=== PATIENT | female | born 1975 | race Caucasian/White ===

== ENCOUNTER 2020-04-04 07:45 | Outpatient (CLI) | payer OTHER | END 2020-04-04 23:59 | disposition home or self-care (01) | LOC: LAB.WCP 07:45 | PROVIDERS: ATTEND Family Medicine | DX: E03.9 Hypothyroidism, unspecified (principal) | CPT/HCPCS: 36415; 84443 ==

== ENCOUNTER 2020-06-02 08:00 | Outpatient (CLI) | payer OTHER | END 2020-06-02 23:59 | disposition home or self-care (01) | LOC: LAB.WCP 08:00 | PROVIDERS: ATTEND Family Medicine | DX: E03.9 Hypothyroidism, unspecified (principal) | CPT/HCPCS: 36415; 84443 ==

== ENCOUNTER 2021-04-08 08:00 | Outpatient (CLI) | payer OTHER ==
[2021-04-08 11:55] LABS: BASOPHILS % (AUTO) 0.4 %; EOSINOPHILS # (AUTO) 0.1 10^3/uL (0.0-0.7); EOSINOPHILS % (AUTO) 1.2 %; HCT - HEMATOCRIT 40.4 % (37.0-47.0); HGB - HEMOGLOBIN 13.2 g/dL (12.0-16.0); LYMPHOCYTES # (AUTO) 1.5 10^3/uL (1.5-3.5); LYMPHOCYTES % (AUTO) 29.7 %; MEAN CORPUSCULAR HEMOGLOBIN 29.7 pg (27.0-31.0); MEAN CORPUSCULAR HGB CONC 32.7 g/dL (32.0-36.0); MEAN PLATELET VOLUME 11.5 fL (7.9-10.8); MONOCYTES # (AUTO) 0.4 10^3/uL (0.0-1.0); MONOCYTES % (AUTO) 7.4 %; NEUTROPHILS # (AUTO) 3.2 10^3/uL (1.5-6.6); NEUTROPHILS % (AUTO) 61.1 %; PLT - PLATELET COUNT 252 10^3/uL (130-450); RED BLOOD COUNT 4.44 10^6/uL (4.20-5.40); RED CELL DISTRIBUTION WIDTH 13.2 % (12.0-15.0); WHITE BLOOD COUNT 5.2 x10^3/uL (4.8-10.8)
[2021-04-08 12:01] LABS: ALBUMIN 4.2 g/dL (3.2-5.5); ALBUMIN/GLOBULIN RATIO 1.5 (1.0-2.2); ALKALINE PHOSPHATASE 59 IU/L (42-121); ALT ALANINE AMINOTRANSFERASE 14 IU/L (10-60); AST ASPARTATE AMINOTRANSFERASE 15 IU/L (10-42); BILIRUBIN,TOTAL 0.6 mg/dL (0.2-1.0); BUN - BLOOD UREA NITROGEN 13 mg/dL (6-20); CALCIUM 9.1 mg/dL (8.5-10.3); CARBON DIOXIDE - CO2 24 mmol/L (21-32); CHLORIDE 104 mmol/L (101-111); CHOL/HDL RATIO 2.6 (<4.4); CHOLESTEROL 201 mg/dL; CREATININE 0.6 mg/dL (0.4-1.0); GFR - MDRD 109 (>89); GLUCOSE 94 mg/dL (70-100); HDL CHOLESTEROL 77 mg/dL; LDL CHOLESTEROL,CALCULATED 113 mg/dL; LDL/HDL RATIO 1.5 (<4.4); POTASSIUM 4.4 mmol/L (3.5-5.0); SODIUM 138 mmol/L (135-145); TRIGLYCERIDES 53 mg/dL; VLDL CHOLESTEROL 11 mg/dL
[2021-04-08 12:10] LABS: THYROID STIMULATING HORMONE 1.42 uIU/mL (0.34-5.60)
== END 2021-04-08 23:59 | disposition home or self-care (01) ==
LOC: LAB.WCP 08:00
PROVIDERS: ATTEND Nurse Practitioner Family
DX: E03.9 Hypothyroidism, unspecified (principal)
CPT/HCPCS: 36415; 80053; 80061; 83721; 84443; 85025

== ENCOUNTER 2021-05-07 10:04 | Outpatient (CLI) | payer OTHER ==
[2021-05-07 11:20] VITALS: BP 100/72
--- NOTE | 2021-05-07 11:20 | SLEEP CARE CONSULTATION ---
Information from patient questionnaire entered by Sissy Bhakta. I have reviewed and concur with the information entered by Sissy Bhakta. This document represents the service I personally performed and the decisions made by me, Alisa Lucas ARNP. History of Present Illness Service Date and Time: 05/07/2021 1004 Reason for Visit: New patient Chief Complaint: reports: Unrefreshed sleep, Snoring, Excessive daytime sleepiness, Observed pauses in breathing, Fatigue, Frequent awakenings at night Date of Onset: 4 years Usual bedtime: 10 pm Time it takes to fall asleep: less than 10 minutes Snores at night: Yes Observed to quit breathing while asleep: Yes Sleeps alone due to snoring: No Number of times waking at night: 2 Reasons for waking at night: reports: Snoring, Gasping for air Toss, Turn, or Twitch while sleeping: Yes Recalls having dreams: Yes Usually gets out of bed at: 5:30 am; weekends 7 AM Feels refreshed in the morning: No Morning headache: No Sleepy or fatigued during the day: Yes Ever fallen asleep while driving: No Takes day naps: Yes (10-20 minute naps every day) Dreams during day naps: No Prior sleep studies: No Additional HPI information: I had the pleasure of seeing NAN BAH today regarding the possibility of her having a sleep disorder. Her current complaints are fatigue, frequent night awakenings, observed pauses in breathing, snoring and unrefreshed sleep. She is waking up gasping for air, cannot breathe and her heart pounding. Last week she woke up and felt she could not breathe and thought she was going to . She feels tired when she wakes up and has no energy. She is usually a very active person. She states that she has been snoring loudly for long time but the gasping for air/not breathing well has been noted in the last 3-4 years. Her uses a PAP machine. - Parasomnia Symptoms Ever been unable to move upon waking from sleep: No Walks in sleep: No Talks in sleep: Yes Ever acted out dreams in sleep: No Ever felt weak in the knees when startled or emotional: No Bothered by creepy, crawly, restless sensations in legs: No Problems with memory or concentration: Yes (concentration mostly; short term memory is not very good) Subjective Initial [place] Sleepiness Scale score: 12 (in 2020) Past Medical History Past Medical History: reports: Hypothyroidism, Other (TMJ; adenoids and tonsils removed) Social History The patient's occupation is a TEACHER. Patient is and lives in [place]. Have you smoked in the past 12 months: No Alcohol use: No Caffeine use: Yes Caffeine amount and frequency: 1 cup daily Family History Family history of sleep disordered breathing: Yes Family Hx Sleep Apnea: Mother: Sleep apnea - Treated, Father: Snoring Allergies and Home Medications Drug allergies reviewed: Yes (ibuprofen) Home medication list reviewed: Yes Allergy and home medication list: Levothyroxine 88 mcg Azelastine HCl nasal spray Review of Systems Weight gain over past 5 years: 5-10 Cardiovascular: denies: high blood pressure Respiratory: reports: shortness of breath Gastrointestinal: reports: heartburn, difficulty swallowing Psychiatric: reports: claustrophobia. denies: anxiety, depression Ear/Nose/Throat: reports: tonsillectomy, wisdom teeth removed. denies: injury to nose Endocrine: reports: thyroid disease, sluggishness Immunologic: reports: sneezing, allergies to food or environment (seasonal) Physical Exam Blood Pressure: 100/72 Cuff size: wrist Heart Rate: 64 O2 Saturation: 98 Height: 5 ft 4 in Weight: 137 lb Body Mass Index: 23.5 BMI Classification: Healthy weight Neck circumference: 12.5 (inches) Mouth and throat: narrow oropharynx Soft palate: normal Hard palate: normal Uvula visualization: 25% Mallampati Class III Tongue: enlarged in size with teeth moore on lateral edges Tonsils: 1+ Chin and jaw: Micrognathia Neck: normal w/o lymphadenopathy or thyromegaly Heart: regular rate and rhythm Lungs: clear bilaterally Impression and Plan 1. Suspected Obstructive Sleep Apnea-Hypopnea Syndrome, as suggested by a history of loud and irregular snoring, observed cessation of breath while asleep, gasping or choking in sleep, frequent awakening during the night, unrefreshed sleep, cognitive impairment, and excessive daytime sleepiness. Narrow oropharynx and obesity are common predisposing factors for obstructive sleep apnea-hypopnea syndrome. I recommend proceeding to polysomnography to confirm the diagnosis and to assess severity. If the patient has significant sleep disordered breathing, a manual CPAP titration study will also be performed to find the optimal treatment pressure. I informed the patient of what the sleep studies involve and after some discussion, obtained agreement to proceed. The pathophysiology of obstructive sleep apnea-hypopnea syndrome was discussed with the patient and health risks of cardiovascular and cerebrovascular disease if not treated. AAS brochure for obstructive sleep apnea-hypopnea syndrome given and reviewed. Risks of drowsy driving discussed in detail and patient advised to avoid long distance driving and to lung puller at the first sign of drowsiness. Patient agreed to plan. * Schedule polysomnography +- manual CPAP titration study and return in 1-2 weeks after the study to discuss result and initiate therapy. * Avoid long distance driving or driving when feeling sleepy. * Avoid alcohol, sedative and muscle relaxant around bedtime. * Maintain a healthy weight. * Review instructions provided by trained office staff on how to prepare for the sleep study. * Return for follow-up after sleep study completed. Counseling Topics: Weight loss health impact Visit Type: In Office Time Spent with Patient (minutes): 32 Provider Statement: I spent 100% of the Face to Face Visit with the patient with greater than 50% spent counseling the patient and coordination of care.
== END 2021-05-07 10:05 | disposition home or self-care (01) ==
LOC: SC 10:04
PROVIDERS: ATTEND Nurse Practitioner Family
DX: R06.81 Apnea, not elsewhere classified (principal); G47.8 Other sleep disorders; G47.10 Hypersomnia, unspecified; R41.89 Other symptoms and signs involving cognitive functions and awareness; R06.83 Snoring
CPT/HCPCS: 99203; 99212

== ENCOUNTER 2021-06-10 09:01 | Outpatient (CLI) | payer OTHER | END 2021-06-10 09:02 | disposition home or self-care (01) | LOC: SC 09:01 | PROVIDERS: ATTEND Nurse Practitioner Family | DX: G47.33 Obstructive sleep apnea (adult) (pediatric) (principal) | CPT/HCPCS: 95806 ==

== ENCOUNTER 2021-06-25 09:10 | Outpatient (CLI) | payer OTHER ==
--- NOTE | 2021-06-25 09:35 | SLEEP CARE CONSULTATION ---
Information from patient questionnaire entered by Sissy Bhakta. I have reviewed and concur with the information entered by Sissy Bhakta. This document represents the service I personally performed and the decisions made by , Alisa Lucas ARNP. History of Present Illness Service Date and Time: 06/25/2021 0910 Initial [place] Sleepiness Scale score: 12 (in 2020) Current [place] Sleepiness Scale score: 16 Additional HPI information: NAN BAH returns for follow up and results of the recently performed home sleep study. I explained the pathophysiology behind obstructive sleep apnea. We then spent quite a bit of time discussing different treatment options. For mild obstructive sleep apnea, surgery and oral appliance are alternatives to nasal CPAP therapy but in moderate or severe cases, nasal CPAP is the most effective and reliable treatment. After some discussion, the patient opted to go with the nasal CPAP therapy. Nasal autoCPAP set at 4-15 cmH20 will be ordered with rationale explained. A manual titration study will be ordered if unable to find optimal pressure with office adjustments. I explained how CPAP machine works with sample devices Siklu Dreamstation and [employer] [id number] and what to expect when using the machine. Using CPAP every night in order to get used to it was emphasized. Patient advised to put CPAP mask on before getting into bed so as not to fall asleep without CPAP. To assist acclimation to CPAP use, it could also be used for a short time during day while reading or watching TV. The patient was instructed to call the CPAP supplier to discuss any mechanical problem that may occur. If the mask given is uncomfortable or is difficult to keep on through the night even with adjustment, contact the CPAP supplier as many will replace with another mask style if notified before 30 days. If snoring or perceives is not getting enough air or too much air from the machine, notify this office. AASM patient education PAP tips reviewed and given to patient. Patient does not drink alcohol. Patient was cautioned about risks of drowsy driving until sleepiness symptoms resolve. Sleep Study - Results Type of Sleep Study: Home sleep study Prior sleep studies: No Polysomnography/Home Sleep Study results: Physician Impression: The quality of the study is good. The length of the study is adequate (> 240 minutes). Please also see the tabulated and graphic data. 1. Obstructive Sleep Apnea-Hypopnea (ICD-10 G47.33), mild, with an AHI of 5.2/hr and maureen SaO2 of 90%. During the study, the patient had 17 apneas (17 obstructive, 0 central, 0 mixed) and 15 hypopneas. The longest episode lasted 105.5 seconds. The respiratory events occurred independently of sleep stage and body position (supine AHI was 5.1 and non-supine, 13.95). Allergies and Home Medications Home medication list reviewed: Yes (no changes) Review of Systems Review of systems same as previous: Yes (no changes) Physical Exam Heart Rate: 86 O2 Saturation: 97 Height: 5 ft 4 in Weight: 137 lb Body Mass Index: 23.5 BMI Classification: Healthy weight Impression and Plan 1. Obstructive Sleep Apnea-Hypopnea Syndrome, mild, with lowest oxygen saturation of 90%. Obviously this is the cause of the patients symptoms of unrefreshed sleep, and excessive daytime sleepiness. Positive pressure therapy could benefit her overall health and reduce risks of cardiovascular and cerebrovascular adverse events. As mentioned above, the patient will be started on nasal autoCPAP therapy with pressure set at 4-15 cmH2O. A manual titration study will be completed if unable to find optimal treatment pressure with office adjustments. Compliance guidelines also reviewed. A copy of compliance guidelines will be given for reference at check out. Patient is at a healthy weight and was advised to maintain her weight because weight gain can increase severity of sleep apnea. She voiced understanding. * Nasal auto CPAP therapy, pressure at 4-15 cm H2O. * Maintain a healthy weight. * The patient is again cautioned about driving until sleepiness completely resolves. * Return one month after CPAP obtained. I will assess response to therapy and compliance at that time. Counseling Topics: Weight control Visit Type: In Office Time Spent with Patient (minutes): 20 Provider Statement: I spent 100% of the Face to Face Visit with the patient with greater than 50% spent counseling the patient and coordination of care.
== END 2021-06-25 09:11 | disposition home or self-care (01) ==
LOC: SC 09:10
PROVIDERS: ATTEND Nurse Practitioner Family
DX: G47.33 Obstructive sleep apnea (adult) (pediatric) (principal)
CPT/HCPCS: 99212; 99213

== ENCOUNTER 2021-09-18 13:59 | Outpatient (CLI) | payer OTHER ==
[2021-09-18 18:05] LABS: BASOPHILS # (AUTO) 0.1 10^3/uL (0.0-0.1); BASOPHILS % (AUTO) 0.7 %; EOSINOPHILS # (AUTO) 0.1 10^3/uL (0.0-0.7); EOSINOPHILS % (AUTO) 1.5 %; HCT - HEMATOCRIT 40.3 % (37.0-47.0); HGB - HEMOGLOBIN 12.9 g/dL (12.0-16.0); LYMPHOCYTES # (AUTO) 1.9 10^3/uL (1.5-3.5); LYMPHOCYTES % (AUTO) 28.8 %; MEAN CORPUSCULAR HEMOGLOBIN 28.5 pg (27.0-31.0); MEAN CORPUSCULAR VOLUME 89.2 fL (81.0-99.0); MONOCYTES # (AUTO) 0.5 10^3/uL (0.0-1.0); MONOCYTES % (AUTO) 7.7 %; NEUTROPHILS # (AUTO) 4.1 10^3/uL (1.5-6.6); PLT - PLATELET COUNT 310 10^3/uL (130-450); RED BLOOD COUNT 4.52 10^6/uL (4.20-5.40); RED CELL DISTRIBUTION WIDTH 12.5 % (12.0-15.0); WHITE BLOOD COUNT 6.7 x10^3/uL (4.8-10.8)
[2021-09-18 18:29] LABS: ALBUMIN 4.3 g/dL (3.2-5.5); ALBUMIN/GLOBULIN RATIO 1.4 (1.0-2.2); BILIRUBIN,TOTAL 0.5 mg/dL (0.2-1.0); CALCIUM 9.1 mg/dL (8.5-10.3); CREATININE 0.6 mg/dL (0.4-1.0); POTASSIUM 3.7 mmol/L (3.5-5.0); TOTAL PROTEIN 7.3 g/dL (6.7-8.2)
[2021-09-18 18:41] LABS: THYROID STIMULATING HORMONE 0.68 uIU/mL (0.34-5.60)
[2021-09-18 18:42] LABS: FREE T4 (FREE THYROXINE) 1.13 ng/dL (0.58-1.64)
== END 2021-09-18 23:59 | disposition home or self-care (01) ==
LOC: LAB.WCP 13:59
PROVIDERS: ATTEND Nurse Practitioner
DX: E03.9 Hypothyroidism, unspecified (principal)
CPT/HCPCS: 36415; 80053; 84439; 84443; 85025

== ENCOUNTER 2021-10-20 10:53 | Outpatient (CLI) | payer OTHER ==
[2021-10-20 11:55] VITALS: BP 114/77
--- NOTE | 2021-10-20 11:55 | SLEEP CARE CONSULTATION ---
Information from patient questionnaire entered by Piotr Alejandre MA. I have reviewed and concur with the information entered by Piotr Alejandre MA. This document represents the service I personally performed and the decisions made by , Alisa Lucas ARNP. History of Present Illness Service Date and Time: 10/20/2021 1053 Previous diagnosis: Mild, Obstructive Sleep Apnea-Hypopnea Syndrome AHI: 5.2 Reason for follow up: first compliance (SET UP , ROSS ) Equipment type: CPAP Equipment obtained from: [employer] (getting supplies) Mask brand: Resmed (N30i) Backup mask available: No (when replaced will keep old mask ) Last cushion change: 1 month Prior sleep studies: No Type of Sleep Study: Home sleep study HPI additional information: NAN BAH was diagnosed to have mild, AHI 5.2, obstructive sleep apnea-hypopnea syndrome and returned today for CPAP therapy first compliance follow-up. Sleep Study - Results Type of Sleep Study: Home sleep study Prior sleep studies: No CPAP Compliance Data - Data Reviewed with Patient Average duration of nightly device use: 6 hours 29 minutes Compliance rate %: 100 Current pressure setting (cmH2O): 4-15 (median 5.7, avg 8.8, max 10.4) Average residual AHI: 1.1 Central apnea: 0.6 Obstructive apnea: 0.3 Average large leak: 9.5 L/min Subjective Patient concerns: reports: mask discomfort, other (air through mouth). denies: aerophagia, air blowing in eyes, mask leak noise, condensation in mask/hose, nasal congestion, dry mouth, nose, throat, epistaxis Observed to snore while using device: No Current pressure setting perceived as: comfortable On therapy, patient: reports: sleeping better, awakening more refreshed, being more awake and alert during the day, more rested overall. denies: drowsiness while driving Initial [place] Sleepiness Scale score: 12 (in 2020) Current [place] Sleepiness Scale score: 13 (2020) Allergies and Home Medications Home medication list reviewed: Yes (no changes) Review of Systems Review of systems same as previous: Yes (no changes) Physical Exam Vital signs obtained and entered by: NEVILLE NINO Blood Pressure: 114/77 (left) Cuff size: wrist Heart Rate: 62 O2 Saturation: 98 (with mask) Height: 5 ft 4 in Weight: 135 lb (with clothes) Body Mass Index: 23.1 BMI Classification: Healthy weight Impression and Plan 1. Obstructive Sleep Apnea-Hypopnea Syndrome, mild, with excellent treatment compliance and good apnea control. On CPAP therapy, the patient has better sleep quality and is more rested overall. Her hair has stopped falling out since starting the CPAP therapy. She has felt the nasal pillows mask is uncomfortable and she is breathing through her mouth at night. She would like to try a full face mask to see if this would be more comfortable. I will write for a mask refitting for a full face mask. The patients pressure will be changed to autoCPAP 6-10 cmH20 to reflect the pressures being used. Patient advised to contact me if pressure change is uncomfortable so that it can be adjusted. Goals for apnea control discussed. Patient's apnea severity and rationale for treatment to reduce apnea, improve sleep quality and reduce cardiovascular and cerebrovascular events was reviewed. Patient is at a healthy weight. * Change auto CPAP pressure to 6-10 cmH2O * mask refitting for a full face mask * Notify me if snoring with mask or feeling that the pressure is too much or too little * Maintain a healthy weight * Call this office if any problems using CPAP * Return for follow up in 1-2 months, or sooner if concerns arise Counseling Topics: Spare mask, Weight control Visit Type: In Office Time Spent with Patient (minutes): 20 Provider Statement: I spent 100% of the Face to Face Visit with the patient with greater than 50% spent counseling the patient and coordination of care.
== END 2021-10-20 10:54 | disposition home or self-care (01) ==
LOC: SC 10:53
PROVIDERS: ATTEND Nurse Practitioner Family
DX: G47.33 Obstructive sleep apnea (adult) (pediatric) (principal)
CPT/HCPCS: 99212; 99213

== ENCOUNTER 2021-12-23 15:43 | Outpatient (CLI) | payer OTHER ==
[2021-12-23 16:14] VITALS: BP 125/80
--- NOTE | 2021-12-23 16:14 | SLEEP CARE CONSULTATION ---
Information from patient questionnaire entered by Piotr Alejandre MA. I have reviewed and concur with the information entered by Piotr Alejandre MA. This document represents the service I personally performed and the decisions made by , Alisa Lucas ARNP. History of Present Illness Service Date and Time: 12/23/2021 1543 Previous diagnosis: Mild, Obstructive Sleep Apnea-Hypopnea Syndrome AHI: 5.2 Reason for follow up: other (2 month f/u) Equipment type: CPAP Equipment obtained from: [employer] (getting supplies) Mask style: Nasal (AIRFIT N30I) Backup mask available: No (will keep old mask when replaced) Last cushion change: haven't changed it yet Prior sleep studies: No Type of Sleep Study: Home sleep study HPI additional information: NAN BAH was diagnosed to have mild, AHI 5.2, obstructive sleep apnea-hypopnea syndrome and returned today for CPAP therapy two month follow-up. Sleep Study - Results Type of Sleep Study: Home sleep study Prior sleep studies: No CPAP Compliance Data - Data Reviewed with Patient Average duration of nightly device use: 4 HOURS 33 MINUTES Compliance rate %: 53 (60 days) Current pressure setting (cmH2O): 6-10 Average residual AHI: 0.6 Central apnea: .3 Obstructive apnea: .2 Average large leak: 15.2 Subjective Missed days of use due to: reports: mask issues (got a full face that was hurting face and couldn't wear), illness (mouth infection with surgery for bone graft) Patient concerns: reports: nasal congestion (Azelastine and saline nasal spray used before bed; wakes up sneezing), dry mouth, nose, throat (dry mouth). denies: aerophagia, mask discomfort, air blowing in eyes, mask leak noise, co ndensation in mask/hose, epistaxis, other Observed to snore while using device: No Current pressure setting perceived as: comfortable On therapy, patient: reports: sleeping better, awakening more refreshed, being more awake and alert during the day, more rested overall. denies: drowsiness while driving Initial [place] Sleepiness Scale score: 12 (in 2020) Current [place] Sleepiness Scale score: 15 (2021) Allergies and Home Medications Home medication list reviewed: Yes (no changes) Review of Systems Review of systems same as previous: No (cyst in mouth, had surgery with bone implants since October) Physical Exam Vital signs obtained and entered by: NEVILLE NINO Blood Pressure: 125/80 (RIGHT, PULSE 83, RESP 14,) Heart Rate: 85 O2 Saturation: 97 (N95) Height: 5 ft 4 in Weight: 135 lb (WITH CLOTHES) Body Mass Index: 23.1 BMI Classification: Healthy weight Impression and Plan 1. Obstructive Sleep Apnea-Hypopnea Syndrome, mild, with fair treatment compliance and excellent apnea control. On CPAP therapy, the patient has better sleep quality and is more rested overall. Patient's compliance has gone down (100% at last visit) mainly due to having an infection in her mouth for which she had to have surgery/a bone implant in October. Patient is trying to use the mask more now that she has been recovering. Patient states they sent her the wrong mask, it is a full face and it made her feel very claustrophobic. She has gone back to her nasal cushion mask that she likes a lot better. I encouraged her to order some more from her DME supplier and she voiced understanding. I do not feel we need any pressure changes today and that her compliance will come up as she continues to recover. She has had some nasal congestion and dry mouth. Oral dryness can be reduced by adjusting humidity setting higher or heated hose lower or by adjusting both settings. Verbal instructions given on how to change humidity and heated hose settings with rationale explaining why to change. Patient's apnea severity and rationale for treatment to reduce apnea, improve sleep quality and reduce cardiovascular and cerebrovascular events was reviewed. Patient is at a healthy weight for her height. * Continue auto CPAP pressure at 6-10 cmH2O * Notify me if snoring with mask or feeling that the pressure is too much or too little * Maintain a healthy weight * Call this office if any problems using CPAP * Return for follow up in 3 months, or sooner if concerns arise Counseling Topics: Spare mask, Weight control Visit Type: In Office Time Spent with Patient (minutes): 22 Provider Statement: I spent 100% of the Face to Face Visit with the patient with greater than 50% spent counseling the patient and coordination of care.
== END 2021-12-23 15:44 | disposition home or self-care (01) ==
LOC: SC 15:43
PROVIDERS: ATTEND Nurse Practitioner Family
DX: G47.33 Obstructive sleep apnea (adult) (pediatric) (principal)
CPT/HCPCS: 99212; 99213

== ENCOUNTER 2022-03-25 14:28 | Outpatient (CLI) | payer OTHER ==
[2022-03-25 15:07] VITALS: BP 125/82
--- NOTE | 2022-03-25 15:07 | SLEEP CARE CONSULTATION ---
Information from patient questionnaire entered by Piotr Alejandre MA. I have reviewed and concur with the information entered by Piotr Alejandre MA. This document represents the service I personally performed and the decisions made by , Alisa Lucas ARNP. History of Present Illness Service Date and Time: 03/25/2022 1428 Previous diagnosis: Mild, Obstructive Sleep Apnea-Hypopnea Syndrome AHI: 5.2 Reason for follow up: three month (3 MONTH F/U, RESMED, ) Equipment type: CPAP Equipment obtained from: [employer] (getting supplies) Mask style: Nasal Mask brand: Resmed (Airfit N30i) Backup mask available: Yes (other mask) Prior sleep studies: No Type of Sleep Study: Home sleep study HPI additional information: NAN BAH was diagnosed to have mild, AHI 5.2, obstructive sleep apnea-hypopnea syndrome and returned today for CPAP therapy 3 months follow-up. Sleep Study - Results Type of Sleep Study: Home sleep study Prior sleep studies: No CPAP Compliance Data - Data Reviewed with Patient Average duration of nightly device use: 5 HOURS 11 MINUTES Compliance rate %: 63 (12/24/21-03/23/22; 76/90 day usage) Current pressure setting (cmH2O): 6-10 Average residual AHI: 0.8 Central apnea: .3 Obstructive apnea: .3 Average large leak: 17.0 Subjective Missed days of use due to: reports: mask issues, illness (has had dental surgeries x 2), other (work stress issues) Patient concerns: reports: mask discomfort (has not been able get more mask cushions yet, not changing out). denies: aerophagia, air blowing in eyes, mask leak noise, condensation in mask/hose, nasal congestion, dry mouth, nose, throat, epistaxis, other Observed to snore while using device: No Current pressure setting perceived as: comfortable On therapy, patient: reports: sleeping better, awakening more refreshed, being more awake and alert during the day, more rested overall. denies: drowsiness while driving Initial [place] Sleepiness Scale score: 12 (in 2020) Current [place] Sleepiness Scale score: 9 (02/2022) Allergies and Home Medications Known drug allergies: No Drug allergies reviewed: Yes (MOTRIN) Home medication list reviewed: Yes (no changes) Review of Systems Review of systems same as previous: No (2nd dental surgery) Physical Exam Vital signs obtained and entered by: NEVILLE NINO Blood Pressure: 125/82 (RESP 16, PULSE 76, RIGHT) Cuff size: wrist Heart Rate: 76 O2 Saturation: 98 (N95) Height: 5 ft 4 in Weight: 136 lb 8 oz Body Mass Index: 23.4 BMI Classification: Healthy weight Impression and Plan 1. Obstructive Sleep Apnea-Hypopnea Syndrome, mild, with good treatment compliance and good apnea control. On CPAP therapy, the patient has better sleep quality and is more rested overall. Patient has been having mask comfort issues. Her DME gave her a full face mask but she cannot use this as it feels too "heavy" on her face. She has been using a ResMed N30i that is more comfortable but she will get some soreness under the nasal septum. She asks for advise. I recommended that she try a Alejandra Dreamwear nasal cushion to see if this is more comfortable. A sample of this mask was given to patient. She has had some lower compliance also due to not being able to wear her mask because of facial soreness after dental procedures/surgery. She is trying to use it as much as she is able. She has also had a lot of stress from work and family that has limited the time she is able to sleep. She does state that she sleeps better when able to tolerate wearing the mask and getting solid sleep. Patient's apnea severity and rationale for treatment to reduce apnea, improve sleep quality and reduce cardiovascular and cerebrovascular events was reviewed. * Continue auto CPAP pressure at 6-10 cmH2O * Gave Dreamwear nasal cushion mask set to try * Notify me if snoring with mask or feeling that the pressure is too much or too little * Call this office if any problems using CPAP * Return for follow up in 6 months, or sooner if concerns arise Mask provided: Yes Counseling Topics: Spare mask Visit Type: In Office Time Spent with Patient (minutes): 21 Provider Statement: I spent 100% of the Face to Face Visit with the patient with greater than 50% spent counseling the patient and coordination of care.
== END 2022-03-25 14:29 | disposition home or self-care (01) ==
LOC: SC 14:28
PROVIDERS: ATTEND Nurse Practitioner Family
DX: G47.33 Obstructive sleep apnea (adult) (pediatric) (principal)
CPT/HCPCS: 99212; 99213

== ENCOUNTER 2022-09-02 13:26 | Outpatient (CLI) | payer OTHER ==
[2022-09-02 18:32] LABS: THYROID STIMULATING HORMONE 0.23 uIU/mL (0.34-5.60)
[2022-09-02 18:33] LABS: FREE T4 (FREE THYROXINE) 1.09 ng/dL (0.58-1.64)
== END 2022-09-02 13:27 | disposition home or self-care (01) ==
LOC: LAB.N 13:26
PROVIDERS: ATTEND Nurse Practitioner
DX: R53.83 Other fatigue (principal); E55.9 Vitamin D deficiency, unspecified; E03.9 Hypothyroidism, unspecified
CPT/HCPCS: 36415; 82306; 82607; 82652; 83540; 84439; 84443

== ENCOUNTER 2022-09-11 09:44 | Outpatient (CLI) | payer OTHER ==
[2022-09-11 18:42] LABS: BASOPHILS % (AUTO) 0.7 %; EOSINOPHILS # (AUTO) 0.1 10^3/uL (0.0-0.7); EOSINOPHILS % (AUTO) 2.4 %; HCT - HEMATOCRIT 42.9 % (37.0-47.0); HGB - HEMOGLOBIN 13.7 g/dL (12.0-16.0); LYMPHOCYTES # (AUTO) 1.7 10^3/uL (1.5-3.5); LYMPHOCYTES % (AUTO) 32.1 %; MEAN CORPUSCULAR HEMOGLOBIN 28.1 pg (27.0-31.0); MEAN CORPUSCULAR HGB CONC 31.9 g/dL (32.0-36.0); MEAN CORPUSCULAR VOLUME 88.1 fL (81.0-99.0); MEAN PLATELET VOLUME 11.2 fL (7.9-10.8); MONOCYTES # (AUTO) 0.3 10^3/uL (0.0-1.0); MONOCYTES % (AUTO) 5.8 %; NEUTROPHILS # (AUTO) 3.2 10^3/uL (1.5-6.6); NEUTROPHILS % (AUTO) 58.8 %; PLT - PLATELET COUNT 282 10^3/uL (130-450); RED BLOOD COUNT 4.87 10^6/uL (4.20-5.40); WHITE BLOOD COUNT 5.4 x10^3/uL (4.8-10.8)
[2022-09-11 18:56] LABS: ALBUMIN 3.9 g/dL (3.2-5.5); ALBUMIN/GLOBULIN RATIO 1.1 (1.0-2.2); BILIRUBIN,TOTAL 0.5 mg/dL (0.2-1.0); CALCIUM 8.8 mg/dL (8.5-10.3); CREATININE 0.6 mg/dL (0.4-1.0); POTASSIUM 4.4 mmol/L (3.5-5.0); TOTAL PROTEIN 7.3 g/dL (6.7-8.2)
[2022-09-11 19:10] LABS: THYROID STIMULATING HORMONE 0.73 uIU/mL (0.34-5.60)
[2022-09-11 19:13] LABS: FREE T4 (FREE THYROXINE) 0.84 ng/dL (0.58-1.64)
== END 2022-09-11 09:45 | disposition home or self-care (01) ==
LOC: LAB.N 09:44
PROVIDERS: ATTEND Nurse Practitioner
DX: E03.9 Hypothyroidism, unspecified (principal); R53.83 Other fatigue
CPT/HCPCS: 36415; 80053; 84439; 84443; 85025

== ENCOUNTER 2022-09-28 16:05 | Outpatient (CLI) | payer OTHER ==
[2022-09-28 16:41] VITALS: BP 142/80
--- NOTE | 2022-09-28 16:41 | SLEEP CARE CONSULTATION ---
Information from patient questionnaire entered by Doris Acuna. I have reviewed and concur with the information entered by Doris Acuna. This document represents the service I personally performed and the decisions made by me, Alisa Lucas ARNP. History of Present Illness Service Date and Time: 09/28/2022 1605 Previous diagnosis: Mild, Obstructive Sleep Apnea-Hypopnea Syndrome AHI: 5.2 Reason for follow up: six month (F/U) Equipment type: CPAP Equipment obtained from: [employer] (getting supplies but does not like dealing with them) Mask style: Nasal Backup mask available: Yes (other mask) Prior sleep studies: No Type of Sleep Study: Home sleep study HPI additional information: NAN BAH was diagnosed to have mild, AHI 5.2, obstructive sleep apnea-hypopnea syndrome and returned today for CPAP therapy six month follow-up. Sleep Study - Results Type of Sleep Study: Home sleep study Prior sleep studies: No CPAP Compliance Data - Data Reviewed with Patient Average duration of nightly device use: 6 hours 5 mins Compliance rate %: 53 (106/180 days used) Current pressure setting (cmH2O): 6-10 Average residual AHI: 1.1 Central apnea: 0.6 Obstructive apnea: 0.3 Subjective Missed days of use due to: reports: family emergency (father ill in hospital/) Patient concerns: reports: nasal congestion (using saline nasals spray and astelin; prob before machine), dry mouth, nose, throat. denies: aerophagia, mask discomfort, air blowing in eyes, mask leak noise, condensation in mask/ hose, epistaxis Observed to snore while using device: No Current pressure setting perceived as: comfortable On therapy, patient: reports: sleeping better, awakening more refreshed, being more awake and alert during the day, more rested overall. denies: drowsiness while driving Initial [place] Sleepiness Scale score: 12 (in 2020) Current [place] Sleepiness Scale score: 6 (09/28/22) Allergies and Home Medications Drug allergies reviewed: Yes (ibuprofen) Home medication list reviewed: Yes (reduced levothyroxine to 88 mcg every other day) Review of Systems Review of systems same as previous: Yes (no changes) Physical Exam Vital signs obtained and entered by: DORIS Farrell MA Blood Pressure: 142/80 (LEFT ARM) Cuff size: regular Heart Rate: 93 O2 Saturation: 98 Height: 5 ft 4 in Weight: 139 lb 12.8 oz Body Mass Index: 24.0 BMI Classification: Normal Impression and Plan 1. Obstructive Sleep Apnea-Hypopnea Syndrome, mild, with fair treatment compliance and good apnea control. On CPAP therapy, the patient has better sleep quality and is more rested overall. Patient has been having some insomnia and other issues that she states is due to other issues like her hypothyroid. Her compliance is lower because he father got sick and she was in the hospital with him for a month. She did not use the machine at this time. She is frustrated because her current DME ([employer]) made her pay for her machine. She would like to change to a different DME. She has two different insurances and her can get his supplies from [facility]. She would like to switch to them. I will write to transfer DME. Patient's apnea severity and rationale for treatment to reduce apnea, improve sleep quality and reduce cardiovascular and cerebrovascular events was reviewed. * Continue auto CPAP pressure at 6-10 cmH2O * Transfer DME * Notify me if snoring with mask or feeling that the pressure is too much or too little * Call this office if any problems using CPAP * Return for follow up in 1 year, or sooner if concerns arise Counseling Topics: Spare mask Visit Type: In Office Time Spent with Patient (minutes): 23 Provider Statement: I spent 100% of the Face to Face Visit with the patient with greater than 50% spent counseling the patient and coordination of care.
== END 2022-09-28 16:06 | disposition home or self-care (01) ==
LOC: SC 16:05
PROVIDERS: ATTEND Nurse Practitioner Family
DX: G47.33 Obstructive sleep apnea (adult) (pediatric) (principal)
CPT/HCPCS: 99212; 99213

== ENCOUNTER 2023-01-17 07:05 | Outpatient (CLI) | payer OTHER ==
[2023-01-17 12:43] LABS: CHOL/HDL RATIO 2.4 (<4.4); CHOLESTEROL 185 mg/dL; HDL CHOLESTEROL 77 mg/dL; LDL CHOLESTEROL,CALCULATED 97 mg/dL; LDL/HDL RATIO 1.3 (<4.4); TRIGLYCERIDES 53 mg/dL; VLDL CHOLESTEROL 11 mg/dL
[2023-01-17 13:03] LABS: THYROID STIMULATING HORMONE 24.04 uIU/mL (0.34-5.60)
[2023-01-17 13:05] LABS: FREE T4 (FREE THYROXINE) 0.82 ng/dL (0.58-1.64)
== END 2023-01-17 07:06 | disposition home or self-care (01) ==
LOC: LAB.N 07:05
PROVIDERS: ATTEND Physician Assistant
DX: E03.9 Hypothyroidism, unspecified (principal); Z13.220 Encounter for screening for lipoid disorders
CPT/HCPCS: 36415; 80061; 83721; 84439; 84443

== ENCOUNTER 2023-03-19 16:16 | Outpatient (CLI) | payer OTHER ==
[2023-03-19 21:00] LABS: THYROID STIMULATING HORMONE 2.05 uIU/mL (0.34-5.60)
[2023-03-19 21:02] LABS: FREE T3 2.86 pg/mL (2.5-3.9); FREE T4 (FREE THYROXINE) 1.05 ng/dL (0.58-1.64)
== END 2023-03-19 16:17 | disposition home or self-care (01) ==
LOC: LAB.N 16:16
PROVIDERS: ATTEND Physician Assistant
DX: E03.9 Hypothyroidism, unspecified (principal)
CPT/HCPCS: 36415; 84439; 84443; 84481

== ENCOUNTER 2023-09-21 11:27 | Outpatient (CLI) | payer OTHER ==
[2023-09-21 18:24] LABS: THYROID STIMULATING HORMONE 2.14 uIU/mL (0.34-5.60)
== END 2023-09-21 11:28 | disposition home or self-care (01) ==
LOC: LAB.N 11:27
PROVIDERS: ATTEND Physician Assistant
DX: E55.9 Vitamin D deficiency, unspecified (principal); E03.9 Hypothyroidism, unspecified
CPT/HCPCS: 36415; 82306; 84439; 84443

== ENCOUNTER 2023-10-11 14:24 | Outpatient (CLI) | payer OTHER ==
--- NOTE | 2023-10-11 14:50 | Sleep Patient Instructions ---
Sleep Center Visit Summary - Patient Visit Information Reason for Visit: Annual Visit - Patient Instructions Additional Instructions: You will continue with CPAP therapy with pressure set at 6-10 cmH2O. A supply prescription will be updated with your DME. Please follow up with the sleep care office in 1 year. - Clinic Information Contact: [facility] [address] [place] [address] [email or web address] T: [phone]
--- NOTE | 2023-10-11 14:55 | SLEEP CARE CONSULTATION ---
Information from patient questionnaire entered by Robinson Acuna. I have reviewed and concur with the information entered by Robinson Acuna. This document represents the service I personally performed and the decisions made by , Alisa Lucas ARNP. History of Present Illness Service Date and Time: 10/11/2023 1424 Previous diagnosis: Mild, Obstructive Sleep Apnea-Hypopnea Syndrome AHI: 5.2 Reason for follow up: annual (LAST SEEN 08/2022) Equipment type: CPAP (RESMED Airsense 11, mcgowan 08/2021) Equipment obtained from: Other ([facility]; getting supplies) Mask style: Nasal Mask brand: Resmed (Airfit [id number]) Backup mask available: Yes Last cushion change: end of Jul Prior sleep studies: No Type of Sleep Study: Home sleep study HPI additional information: NAN BAH was diagnosed to have mild, AHI 5.2, obstructive sleep apnea-hypopnea syndrome and returned today for CPAP therapy annual follow- up. Sleep Study - Results Type of Sleep Study: Home sleep study Prior sleep studies: No CPAP Compliance Data - Data Reviewed with Patient Average duration of nightly device use: 5 HRS 24 MINS Compliance rate %: 47 (10/07/2022-10/06/2023; 209/365 days used) Current pressure setting (cmH2O): 6-10 Average residual AHI: 0.9 Central apnea: 0.5 Obstructive apnea: 0.3 Average large leak: 1.6 L/min Subjective Missed days of use due to: reports: illness (has lots of nasal congestion with sneezing; can't always use device), other (had to take care of mother at night, unable to use CPAP) Patient concerns: reports: nasal congestion (has sinus issues). denies: aerophagia, mask discomfort, air blowing in eyes, mask leak noise, condensation in mask/hose, dry mouth, nose, throat, epistaxis Observed to snore while using device: No Current pressure setting perceived as: comfortable On therapy, patient: reports: sleeping better, awakening more refreshed, being more awake and alert during the day, more rested overall. denies: drowsiness while driving Initial [place] Sleepiness Scale score: 12 (in 2020) Current [place] Sleepiness Scale score: 7 (10/11/23) Allergies and Home Medications Known drug allergies: Yes (as listed) Drug allergies reviewed: Yes Home medication list reviewed: Yes (no changes) Allergy and home medication list: Allergies ibuprofen Allergy (Verified 10/10/23 09:39) Review of Systems Review of systems same as previous: Yes (NO CHANGE) Physical Exam Vital signs obtained and entered by: ROBINSON Farrell MA Blood Pressure: 122/70 (LEFT ARM) Cuff size: regular Heart Rate: 76 O2 Saturation: 96 Height: 5 ft 4 in Weight: 143 lb Body Mass Index: 24.5 BMI Classification: Normal Impression and Plan 1. Obstructive Sleep Apnea-Hypopnea Syndrome, mild, with fair treatment compliance and good apnea control. On CPAP therapy, the patient has better sleep quality and is more rested overall. She has trouble with her sinuses with nasal congestion and sneezing that affects her use of her CPAP. She tries to use it as much as she can because she feels the improvement of her sleep. Patient has significant improvement of their sleep apnea and is satisfied with current CPAP therapy. Patient denies problems with oral dryness, nasal congestion, epistaxis, skin irritation or aerophagia. Patient's apnea severity and rationale for treatment to reduce apnea, improve sleep quality and reduce cardiovascular and cerebrovascular events was reviewed. * Continue auto CPAP pressure at 6-10 cmH2O * Update supply prescription * Notify me if snoring with mask or feeling that the pressure is too much or too little * Call this office if any problems using CPAP * Return for follow up in 1 year, or sooner if concerns arise Counseling Topics: Spare mask Prescriptions: Device supplies Follow up with Sleep Care in: 1 year Visit Type: In Office Time Spent with Patient (minutes): 20 Provider Statement: I spent 100% of the Face to Face Visit with the patient with greater than 50% spent counseling the patient and coordination of care.
[2023-10-11 15:17] VITALS: BP 122/70; O2SAT 96
== END 2023-10-11 14:25 | disposition home or self-care (01) ==
LOC: SC 14:24
PROVIDERS: ATTEND Nurse Practitioner Family
DX: G47.33 Obstructive sleep apnea (adult) (pediatric) (principal); E55.9 Vitamin D deficiency, unspecified
CPT/HCPCS: 36415; 80053; 83970; 84100; 86364; 99212

== ENCOUNTER 2023-10-11 14:55 | Outpatient (CLI) | payer OTHER ==
[2023-10-11 18:27] LABS: ALBUMIN 4.3 g/dL (3.2-5.5); ALBUMIN/GLOBULIN RATIO 1.7 (1.0-2.2); BILIRUBIN,TOTAL 0.5 mg/dL (0.2-1.0); CALCIUM 9.3 mg/dL (8.5-10.3); CREATININE 0.7 mg/dL (0.6-1.3); POTASSIUM 3.8 mmol/L (3.5-4.5); TOTAL PROTEIN 6.9 g/dL (6.4-8.9)
== END 2023-10-11 14:56 | disposition home or self-care (01) ==
LOC: LAB.N 14:55
PROVIDERS: ATTEND Physician Assistant
DX: E55.9 Vitamin D deficiency, unspecified (principal)
CPT/HCPCS: 36415; 80053; 83970; 84100; 86364

== ENCOUNTER 2023-10-28 11:02 | Outpatient (CLI) | payer OTHER | END 2023-10-28 11:03 | disposition home or self-care (01) | LOC: LAB.N 11:02 | PROVIDERS: ATTEND Physician Assistant | DX: E55.9 Vitamin D deficiency, unspecified (principal); R79.89 Other specified abnormal findings of blood chemistry | CPT/HCPCS: 82330 ==

== ENCOUNTER 2023-11-01 08:00 | Outpatient (CLI) | payer OTHER | END 2023-11-01 23:59 | disposition home or self-care (01) | LOC: LAB.N 08:00 | PROVIDERS: ATTEND Physician Assistant | DX: E55.9 Vitamin D deficiency, unspecified (principal); R79.89 Other specified abnormal findings of blood chemistry | CPT/HCPCS: 81599; 82340 ==

== ENCOUNTER 2023-12-24 11:04 | Outpatient (CLI) | payer OTHER | END 2023-12-24 11:05 | disposition home or self-care (01) | LOC: LAB 11:04 | PROVIDERS: ATTEND Physician Assistant | DX: E55.9 Vitamin D deficiency, unspecified (principal); R79.89 Other specified abnormal findings of blood chemistry ==

== ENCOUNTER 2024-01-02 08:00 | Outpatient (CLI) | payer OTHER ==
[2024-01-04 07:11] LABS: CALCIUM URINE 10.8 mg/dL (Not Estab.)
== END 2024-01-02 23:59 | disposition home or self-care (01) ==
LOC: LAB.N 08:00
PROVIDERS: ATTEND Physician Assistant
DX: E55.9 Vitamin D deficiency, unspecified (principal); R79.89 Other specified abnormal findings of blood chemistry
CPT/HCPCS: 82340

== ENCOUNTER 2024-01-05 13:50 | Outpatient (CLI) | payer OTHER ==
--- NOTE | 2024-01-05 15:49 | DEXA Report ---
PROCEDURE: Dexa Spine and/or Hip INDICATIONS: ELEVATED PARATHYROID TECHNIQUE: Dual energy x-ray absorptiometry (DXA) was performed on a [employer] System. Regions measur ed are the AP Spine, femoral neck, and if needed forearm. COMPARISON: None FINDINGS: Lumbar Spine: Bone Mineral Density: 1.28 g/cm/cm,T score: 0.9. Left Femoral Neck: Bone Mineral Density: 0.95 g/cm/cm, T score: -0.6. Left Hip: Bone Mineral Density: 0.94 g/cm/cm,T score: -0.5. (T score greater or equal to -1.0: NORMAL) (T score from -1.1 to -2.4: OSTEOPENIA) (T score less than or equal to -2.5 to: OSTEOPOROSIS) Impression: By WHO criteria, this patient has normal bone density. Patients with diagnosis of osteoporosis or osteopenia should have regular bone mineral density assess ment. For those eligible for Medicare, routine testing is allowed once every 2 years. Testing frequ ency can be increased for patients who have rapidly progressing disease or for those who are receivin g medical therapy to restore bone mass. Reviewed by: Pan Puri MD on 01/05/2024 3:47 PM PST Approved by: Pan Puri MD on 01/05/2024 3:47 PM PST Station ID: [id number]
== END 2024-01-05 13:51 | disposition home or self-care (01) ==
LOC: DI 13:50
PROVIDERS: ATTEND Physician Assistant
DX: R79.89 Other specified abnormal findings of blood chemistry (principal); E55.9 Vitamin D deficiency, unspecified

== ENCOUNTER 2024-01-12 16:05 | Outpatient (CLI) | payer OTHER ==
[2024-01-12 21:48] LABS: ALBUMIN 4.2 g/dL (3.2-5.5); ALBUMIN/GLOBULIN RATIO 1.8 (1.0-2.2); BILIRUBIN,TOTAL 0.5 mg/dL (0.2-1.0); CALCIUM 9.3 mg/dL (8.5-10.3); CREATININE 0.6 mg/dL (0.6-1.3); POTASSIUM 3.8 mmol/L (3.5-4.5); TOTAL PROTEIN 6.6 g/dL (6.4-8.9)
== END 2024-01-12 16:06 | disposition home or self-care (01) ==
LOC: LAB.N 16:05
PROVIDERS: ATTEND Physician Assistant
DX: E55.9 Vitamin D deficiency, unspecified (principal); R79.89 Other specified abnormal findings of blood chemistry
CPT/HCPCS: 36415; 80053; 82306; 82397; 83970